=== PATIENT | male | born 1990 | race Asian ===

== ENCOUNTER 2016-08-19 10:07 | Emergency (ER) | payer SELFPAY ==
[~2016-08-19] VITALS: Ht 190.5 cm; Wt 81.6 kg
--- NOTE | 2016-08-19 10:52 | ED ANKLE/FOOT INJURY COMPLAINT ---
History of Present Illness General Chief Complaint: Foot or Ankle Injury Stated Complaint: RT ANKLE PAIN Source: patient, old records Exam Limitations: no limitations Vital Signs & Intake/Output Vital Signs & Intake/Output Vital Signs Date Time Temp Pulse Resp B/P B/P Pulse O2 O2 Flow FiO2 Mean Ox Delivery Rate 08/19 1145 98.0 78 16 122/72 99 Room Air 08/19 1119 Room Air 08/19 1019 97.1 74 18 118/69 98 Room Air Allergies Coded Allergies: No Known Allergies (08/19/16) Reconcile Medications No Known Home Medications Triage Note: PT STATES THAT HE FELL LAST PM PLAYING BASKETBALL AND HURT HIS R ANKLE, UNABLE TO STAND ON IT Triage Nurses Notes Reviewed? yes Occurred: yesterday Duration: day(s): (1), constant Timing: recent history Severity: moderate Severity Numbers: 7 Pain/Injury Location: Right: Ankle. Method of Injury: twisted Modifying Factors: Improves With: rest. Worsens With: movement. Associated Symptoms: swelling HPI: 26-year-old male presents to ER for evaluation with a right lateral ankle pain since last night when he injured his foot when he twisted his ankle while playing basketball. He now presents with a nomd-fh-doscasly aching pain worse with ambulation better at rest. There are no modifying factors or associated symptoms otherwise he denies any foot knee hip pain there is no head strike there is no other injury. (GRISELDA RIOS) Past History Travel History Traveled to [place] past 21 day No Medical History Any Pertinent Medical History? none Neurological: NONE EENT: NONE Cardiovascular: NONE Respiratory: NONE Gastrointestinal: NONE Hepatic: NONE Renal: NONE Musculoskeletal: NONE Psychiatric: NONE Endocrine: NONE Blood Disorders: NONE Cancer(s): NONE CHICKEN DRESSER/Reproductive: NONE Surgical History Surgical History: none Psychosocial History What is your primary language Mandarin Tobacco Use: Never used ETOH Use: denies use Illicit Drug Use: denies illicit drug use Family History Hx Contributory? No (GRISELDA RIOS) Review of Systems Review of Systems Constitutional: Reports: see HPI. All Other Systems: Reviewed and Negative Comments Review of systems: See HPI, All other systems negative. Constitutional, no chills no fever, no malaise HEENT: no sore throat no congestion Cardiovascular: No chest pain , no palpitation Skin: no rashes, no change in skin Respiratory: No dyspnea no cough no sputum GI: No nausea no vomiting, no diarrhea Muscle skeletal: joint pain, no back pain, no neck pain, Neurologic: No numbnessno headache Psych: No stress Heme/endocrine: No bruising Immunology: No lymphadenopathy (GRISELDA RIOS) Physical Exam Physical Exam General Appearance: well developed/nourished, no apparent distress, alert, awake Leg/Knee/Thigh Left: normal range of motion Comments: Well-developed well-nourished patient in no apparent distress. HEENT: Atraumatic, extraocular motion intact Neck: Supple, FROM Back: FROM Cardiovascular: Regular rate and rhythms no murmurs Respiratory: No respiratory distress. Patient speaking in full complete sentences. Breath sounds clear to auscultation bilaterally: NO W/R/R Upper Extremities: full range of motion Hip/Pelvis: Atraumatic/Stable. FROM. Knee: Atraumatic/stable. FROM. No joint swelling, no effusion. No laxity. Negative eddie/anterior drawer test. No pain with ROM Leg: Atraumatic. Nontender. No edema, 5 out of 5 strength in the lower extremity, normal dorsiflexion of great toe bilaterally, gross sensation is intact, patellar tendon reflex 2+ bilaterally. Ankle/Foot: Ankle with moderate tenderness laterally over the lateral ligaments. No bony tenderness. No medial tenderness. Range of motion is near full but somewhat limited due to pain. No instability is noted. Skin is intact, moderate lateral swelling, No ecchymosis noted. The foot is neurovascularly intact with sensation and motor grossly intact. There is no foot tenderness or fifth metatarsal tenderness. Able to move all toes. Palpable and intact achilles tendon. There is no proximal tib/fib tenderness Pulses: Normal/equal DP/PT pulses bilaterally. Brisk cap refill Neuro: awake, alert, and oriented to person, place and time. There were no obvious focal neurologic abnormalities. Skin: Warm & dry;No appreciable rash on exposed skin Psych: Mood affect normal, normal memory normal judgment. (GRISELDA RIOS) Progress Differential Diagnosis: fracture, dislocation, sprain, contusion Plan of Care: Orders Procedure Date/time Status Durable Medical Equipment 08/19 1131 Active Posterior splint was applied by me, neurovascularly intact prior to and after application of splint. I discussed with the patient at length all of their results. I had an extensive conversation regarding need for close follow up with their primary care physician/ortho this week as well as return precautions. I answered all of their questions, they feel comfortable with the plan and follow-up care. (GRISELDA RIOS) Diagnostic Imaging: Viewed by Me: Radiology Read. Discussed w/RAD: Radiology Read. Radiology Impression: PATIENT: MAURICE CLAROS PRESENT AGE: 26 PATIENT ACCOUNT NO: [id number] : 91 LOCATION: [facility] ORDERING PHYSICIAN: GRISELDA CAMPBELL SERVICE DATE: 08/19/16 EXAM TYPE: RAD - XRY-ANKLE 3 OR MORE VIEWS R EXAMINATION: RIGHT ANKLE 3 VIEWS CLINICAL INFORMATION: Right ankle pain after fall. COMPARISON: None. TECHNIQUE: AP, lateral, oblique views of the right ankle were obtained. FINDINGS: There is soft tissue swelling overlying the lateral malleolus. There is a small braden of ossification about the inferior aspect of the lateral malleolus. There is no small ankle joint effusion. IMPRESSION: Soft tissue swelling overlying the lateral malleolus. In addition, there is a braden of ossification about the inferior lateral malleolus which could correspond to a small avulsion. No additional osseous abnormalities are identified. There is no ankle joint effusion. DICTATED BY: MATTHEW LAGUNAS MD DATE/TIME DICTATED:08/19/161047 PHARMACY BUYER:JENNIFER DATE/TIME TRANSCRIBED:08/19/161047 CONFIDENTIAL, DO NOT COPY WITHOUT APPROPRIATE AUTHORIZATION. <Electronically signed in Other Vendor System> SIGNED BY: MATTHEW LAGUNAS MD 08/19/16 105 (GRISELDA RIOS) Departure Departure Disposition: HOME OR SELF CARE Condition: Stable Clinical Impression Primary Impression: Avulsion fracture Referrals: LINDSAY HUIZAR,SUZANNE PATIENT HAS NO PRIMARY CARE DR (PCP/Family) Additional Instructions: Rest ice splint on at all times. Crutches when ambulatory Tylenol Motrin for pain. Keep leg elevated to help with swelling. Follow-up with orthopedist DR WAN, RETURN TO THE ER WITH ANY CONCERNS Departure Forms: Customer Survey General Discharge Information Prescriptions: Current Visit Scripts No Known Home Medications (GRISELDA RIOS) PA/GROCERY SPECIALIST Co-Sign Statement Statement: ED Attending supervision documentation- I saw and evaluated the patient. I have also reviewed all the pertinent lab results and diagnostic results. I agree with the findings and the plan of care as documented in the PA's/GROCERY SPECIALIST's documentation. x I have reviewed the ED Record and agree with the PA's/GROCERY SPECIALIST's documentation. [] Additions or exceptions (if any) to the PAs/GROCERY SPECIALIST's note and plan are summarized below: [] (ELAINE HUIZAR,JACLYN) Procedures Splinting Location: rle Manual Alignment Performed: Yes Hand-Made Type: orthoglass Splint: posterior walking Splint Applied By: splint applied by me Pre-Proc Neuro Vasc Exam: normal Post-Proc Neuro Vasc Exam: normal (GRISELDA RIOS)
== END 2016-08-19 11:53 ==
LOC: ERH 10:07
DX: S82.61XA Displaced fracture of lateral malleolus of right fibula, initial encounter for closed fracture (principal); X58.XXXA Exposure to other specified factors, initial encounter; Y93.67 Activity, basketball; Y92.9 Unspecified place or not applicable
CPT/HCPCS: 73610-RT